=== PATIENT | female | born 1995 | race Caucasian/White ===

== ENCOUNTER 2016-10-17 07:41 | Emergency (ER) | payer BC ==
[~2016-10-17] VITALS: Ht 152.4 cm; Wt 59.0 kg
[~2016-10-17 07:41] MED LIST: FLONASE16 G1 BOTH NARES; LEVAQUIN500 MG PO; PHENERGAN25 MG PR; PROAIR HFA8.5 GM IH; PROMETHAZINE HC25 M1 PO
[2016-10-17 08:32] LABS: ADD MIUA? YES; BILIRUBIN SMALL; BLOOD NEGATIVE; COLOR AMBER ((YELLOW)); GLUCOSE (STRIP) NEGATIVE; KETONES NEGATIVE; LEUKOCYTES NEGATIVE; NITRITE POSITIVE; PROTEIN (STRIP) NEGATIVE; SPECIFIC GRAVITY 1.024 (1.000-1.030)
[2016-10-17 08:47] LABS: BACTERIA NONE SEEN /HPF; EPITHELIAL CELLS RARE /HPF; MUCUS 1+ /LPF; RED BLOOD CELLS 0-5 /HPF (0-5); UCUL ADDED? NO
[2016-10-17 09:02] LABS: BASOPHIL COUNT 0.1 K/uL (0-0.1); EOSINOPHIL (%) 8.7 % (0-5); EOSINOPHIL COUNT 0.9 K/uL (0-0.3); IMMATURE GRANULOCYTE (%) 0.3 % (0.0-0.7); INSTRUMENT ABS NEUTROPHIL CT 5.3 K/uL; LYMPHOCYTE COUNT 3.2 K/uL (1.0-2.8); MCH 29.9 PG (29.0-34.0); MCHC 33.3 G/DL (30.0-36.0); MCV 89.7 FL (83-99); MEAN PLAT.VOLUME 9.2 uM^3 (9.5-12.4); MONOCYTE (%) 3.9 % (3-12); MONOCYTE COUNT 0.4 K/uL (0-0.8); NEUTROPHIL (%) 54.3 % (45-76); NEUTROPHIL COUNT 5.3 K/uL (1.8-6.4); PLATELET COUNT 442 K/uL (156-360); RBC DIS.WIDTH-CV 12.7 % (11.8-14.6); RBC DIS.WIDTH-SD 41.9 % (39-53); RED BLOOD COUNT 4.35 M/uL (3.80-5.20); WHITE BLOOD COUNT 9.8 K/uL (4.1-10.2)
[2016-10-17 09:18] LABS: CHLORIDE 106 mEq/L (99-109); POTASSIUM 3.7 mEq/L (3.7-5.4); SODIUM 138 mEq/L (136-147)
[2016-10-17 09:20] LABS: GLUCOSE 81 mg/dL (70-99)
[2016-10-17 09:21] LABS: ANION GAP 13 MEQ/L (2-14)
[2016-10-17 09:24] LABS: GFR ESTIMATE (CALCULATED) > 59 mL/min/
[2016-10-17 09:25] LABS: UREA NITROGEN (BUN) 11 mg/dL (9-23)
[2016-10-17 09:32] LABS: QUANTITATIVE HCG < 4.0 MIU/ML
[2016-10-17] MEDS ORDERED: CIPRO500 MG PO (11:29)
[2016-10-17] MEDS ORDERED: ZOFRAN ODT4 MG PO (11:29)
[2016-10-17 11:50] VITALS: BP 125/82
== END 2016-10-17 12:14 | disposition home or self-care (01) ==
LOC: EME 07:41
PROVIDERS: Physician Assistant
DX: N39.0 Urinary tract infection, site not specified (principal); N12 Tubulo-interstitial nephritis, not specified as acute or chronic; R11.2 Nausea with vomiting, unspecified; R00.0 Tachycardia, unspecified
CPT/HCPCS: 80048; 81003; 83605; 84702; 85025; 87040; 99281; 99284; J0744; J1885; J2405

== ENCOUNTER 2018-02-03 17:27 | Observation (INO) | payer BC ==
[~2018-02-03] VITALS: Ht 152.4 cm; Wt 60.5 kg
[~2018-02-03 17:27] MED LIST changes: +CIPRO500 MG PO; +ZOFRAN ODT4 MG PO
[2018-02-03] MEDS ORDERED: PREDNISONE50 MG PO (18:05)
[2018-02-03] MEDS ORDERED: VENTOLIN HFA18 GM IH (18:05)
[2018-02-03] MEDS ORDERED: PHENERGAN DM SYR1 ML PO (20:44)
[2018-02-03] MEDS ORDERED: ESTARYLLA1 EACH PO (20:45)
[2018-02-03 20:46] LABS: HEMATOCRIT 34.5 % (36.0-46.0); HEMOGLOBIN 11.6 G/DL (11.9-15.5); MCH 31.8 PG (29.0-34.0); MCHC 33.6 G/DL (30.0-36.0); MCV 94.5 FL (83-99); NRBC (%) 0.2 /100 WBC (0-0); PLATELET COUNT 378 K/uL (156-360); RBC DIS.WIDTH-CV 13.5 % (11.8-14.6); RBC DIS.WIDTH-SD 46.7 % (39-53); RED BLOOD COUNT 3.65 M/uL (3.80-5.20); WHITE BLOOD COUNT 10.4 K/uL (4.1-10.2)
[2018-02-03] MEDS ORDERED: SUMATRIPTAN-NA1 EACH PO (20:46)
[2018-02-03] MEDS ORDERED: TOPIRAMATE25 MG PO (20:47)
[2018-02-03] MEDS ORDERED: HYOSCYAMINE0.125 M1 SL (20:47)
[2018-02-03] MEDS ORDERED: FIBER0.4 GM PO (20:47)
[2018-02-03 20:58] LABS: ALBUMIN 3.6 g/dL (3.2-4.8); CHLORIDE 110 mEq/L (99-109); POTASSIUM 4.1 mEq/L (3.7-5.4); SODIUM 139 mEq/L (136-147)
[2018-02-03 21:00] LABS: GLUCOSE 237 mg/dL (70-99); TOTAL PROTEIN 6.5 g/dL (6.4-8.3)
[2018-02-03 21:02] LABS: TOTAL BILIRUBIN 0.1 mg/dL (0.0-1.0)
[2018-02-03 21:04] LABS: ALKALINE PHOSPHATASE 35 IU/L (3-129); CREATININE 0.7 mg/dL (0.6-1.3); GFR ESTIMATE (CALCULATED) > 59 mL/min/
[2018-02-03 21:04] LABS: D-DIMER ELISA < 150.00 ng/mLDDU (<230)
[2018-02-03 21:05] LABS: UREA NITROGEN (BUN) 4 mg/dL (9-23)
[2018-02-03 21:06] LABS: AST (GOT) 19 IU/L (2-34)
[2018-02-03 21:07] LABS: ALT (GPT) 18 IU/L (3-49)
[2018-02-03 21:12] LABS: QUANTITATIVE HCG < 4.0 MIU/ML
[2018-02-03 22:23] VITALS: BP 119/67
[2018-02-04 04:03] VITALS: BP 115/60
[2018-02-04 07:53] VITALS: BP 127/66
[2018-02-04 08:29] LABS: HEMATOCRIT 33.3 % (36.0-46.0); HEMOGLOBIN 11.1 G/DL (11.9-15.5); MCH 31.9 PG (29.0-34.0); MCHC 33.3 G/DL (30.0-36.0); MCV 95.7 FL (83-99); PLATELET COUNT 380 K/uL (156-360); RBC DIS.WIDTH-CV 13.9 % (11.8-14.6); RBC DIS.WIDTH-SD 49.1 % (39-53); RED BLOOD COUNT 3.48 M/uL (3.80-5.20); WHITE BLOOD COUNT 15.9 K/uL (4.1-10.2)
[2018-02-04 08:45] LABS: CHLORIDE 114 mEq/L (99-109); POTASSIUM 4.1 mEq/L (3.7-5.4); SODIUM 140 mEq/L (136-147)
[2018-02-04 08:46] LABS: GLUCOSE 184 mg/dL (70-99)
[2018-02-04 08:50] LABS: CREATININE 0.6 mg/dL (0.6-1.3); GFR ESTIMATE (CALCULATED) > 59 mL/min/
[2018-02-04 08:51] LABS: UREA NITROGEN (BUN) 5 mg/dL (9-23)
[2018-02-04 09:04] LABS: HEMOGLOBIN A1c (GLYCOHEMOGLOB) 4.8 % (Below 5.7)
[2018-02-04] MEDS ORDERED: MEDROL DOSEPAK4 MG PO (09:09)
[2018-02-04] MEDS ORDERED: AZITHROMYCIN250 MG1 PO (09:09)
[2018-02-04] MEDS ORDERED: DUONEB 2.5-0.5 M3 ML AEROSOL (09:10)
[2018-02-04] MEDS ORDERED: PROVENTIL HFA6.7 GM IH (09:47)
== END 2018-02-04 11:39 | disposition home or self-care (01) ==
LOC: EME 17:27 → EDOF 21:32 → 4SOUTH 22:08 → ENPENDDIS 02-04 10:43 → 4SOUTH 02-04 11:39
PROVIDERS: Hospitalist; Internal Medicine; Physician Assistant
DX: J45.901 Unspecified asthma with (acute) exacerbation (principal); R00.0 Tachycardia, unspecified; T48.6X5A Adverse effect of antiasthmatics, initial encounter; R73.9 Hyperglycemia, unspecified; G43.809 Other migraine, not intractable, without status migrainosus; N94.89 Other specified conditions associated with female genital organs and menstrual cycle; Z91.010 Allergy to peanuts; Z88.2 Allergy status to sulfonamides; Z88.1 Allergy status to other antibiotic agents; Z80.41 Family history of malignant neoplasm of ovary; Z80.42 Family history of malignant neoplasm of prostate; Z82.49 Family history of ischemic heart disease and other diseases of the circulatory system
CPT/HCPCS: 71046; 80048; 80053; 82948; 83036; 84702; 85027; 85379; 93005; 94640; 94644; 94799; 99281; 99284; G0378; J1644; J1815; J2930; J3475; J7030